=== PATIENT | female | born 1960 | race Caucasian/White ===

== ENCOUNTER 2016-11-04 23:15 | Emergency (ER) | payer BC ==
[~2016-11-04] VITALS: Ht 162.6 cm; Wt 59.9 kg
[2016-11-04 23:31] VITALS: TEMP 36.9; Ht 162.6 cm; Wt 59.9 kg
[2016-11-04] MEDS ORDERED: OXYCODONE HCL IR 5 MG TAB (IMMEDIATE RELEASE) PO STA (23:39)
[2016-11-05] MEDS ORDERED: NAPR1TAB48 PO (00:27)
[2016-11-05] MEDS ORDERED: BUPR75TA8 PO (00:29)
[2016-11-05] MEDS ORDERED: OXYC1TAB3 PO (00:31)
[2016-11-05] MEDS ORDERED: OXYCODONE IR HOME PACK PO ONE (00:45)
[2016-11-05 00:51] VITALS: BP 138/80; PULSE 79; O2SAT 95
--- NOTE | 2016-11-05 01:00 | EMERGENCY ROOM VISIT NOTE ---
History First contact with patient: 23:35 Chief Complaint: SHOULDER PAIN Stated Complaint: PAIN IN L SHOULDER BROKE OR DISLOCATED History of Present Illness The patient is a 56 year old female who presents to the Emergency Room with complaints of left shoulder pain after she slipped and fell landing on her shoulder just prior to arrival. Patient is visiting family here and is from [place] and returns on Sunday. 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 Patient describes the pain as throbbing, ranging in severity 8 out of 10 worse with movement and better with rest. Pain does not radiate. No prior fracture to this arm. Patient denies chest pain, dyspnea , headache, neck pain, head injury, loss consciousness, numbness, tingling or any other medical complaints. Review of Systems See HPI for pertinent positives & negatives. A total of 10 systems reviewed and were otherwise negative. Past Medical/Surgical History Arthritis, left arm congenital deformity Social History Smoking Status: Current Every Day Smoker Alcohol Use: occasionally Drug Use: none Marital Status: Housing Status: lives with family Current/Historical Medications Scheduled Bupropion Hcl (Wellbutrin), Unknown Dose PO DIRECTED Naproxen (Naprosyn), Unknown Dose PO DIRECTED Scheduled PRN Oxycodone Immediate Rel Tab (Roxicodone Ir), 1-2 TAB PO Q4H PRN for Severe Pain Allergies Coded Allergies: No Known Allergies (Unverified , 11/05/16) Physical Exam Vital Signs Date Time Temp Pulse Resp B/P Pulse Ox O2 Delivery O2 Flow Rate FiO2 11/04/16 23:31 36.9 85 20 145/80 96 Room Air Physical Exam VITALS: Vitals are noted on the nurse's note and reviewed by myself. Vital signs stable. GENERAL: Pleasant female with tobacco odor, in no acute distress, nondiaphoretic , well-developed well-nourished. SKIN: Capillary reflex less than 2 seconds. HEENT: Normocephalic. PERRLA. EOMI. Nares patent. Mucous membranes moist. Neck is supple without nuchal rigidity. No C-spine tenderness. HEART: Regular rate and rhythm without murmurs gallops or rubs. LUNGS: Clear to auscultation bilaterally without wheezes, rales or rhonchi. No retractions or accessory muscle use. ABDOMEN: Positive bowel sounds x 4. Normal tympanic percussion. Soft, nontender, without masses or organomegaly. Adams sign negative. No guarding or rebound tenderness. MUSCULOSKELETAL: Left shoulder tender to palpation increased pain with range of motion, congenital deformity of patient of only having the shoulder to the humerus. Patient has no elbow or below. Sensation is intact. No clavicular tenderness. No thoracic or lumbar tenderness on exam. Patient can ambulate without difficulties. NEURO: Patient was alert and oriented to person place and time. Normal sensation to light and sharp touch. No focal neurological deficits. Medical Decision & Procedures Medications Administered Medications (Trade) Dose Ordered Sig/Drew Route Start Time Stop Time Status Last Admin Dose Admin Oxycodone HCl (Roxicodone Immediate Rel Tab) 5 mg NOW STAT PO 11/04/16 23:39 11/04/16 23:40 DC 11/04/16 23:47 5 MG Oxycodone HCl (Roxicodone Immediate Rel 5MG Home Pack) 1 homepack UD ONCE PO 11/05/16 00:45 11/05/16 00:46 11/05/16 00:43 1 HOMEPACK ED Course Prior records/ancillary studies reviewed. Triage Nursing notes reviewed. Additional history obtained from family. The patient's history was concerning for traumatic injury Differential diagnosis: Etiologies such as fracture, dislocation, pneumothorax, intrathoracic , as well as other traumatic pathologies were entertained. Physical examination findings: As above. The patients vitals were stable. ER treatment provided: OxyIR, sling On reassessment the patient felt better. Vital signs were stable. Diagnostic interpretation by me: Imaging studies: Left shoulder x-ray concerning for humeral head fracture per my interpretation This appears to be consistent with humeral head fracture. Patient was neurovascularly and neurologically intact. Sling was placed. She is advised to follow-up with orthopedics when she returns to [place] on Sunday or here in the ER sooner for severe pain, numbness, tingling, worsening signs or symptoms or as needed. Patient was neurovascularly and neurologically intact. No other injuries were noted. She is well-appearing. She ambulated out of the ER without difficulties. She was given a copy of her x-rays. By the evaluation outlined above emergent etiologies such as pneumothorax, intracranial, neurologic,as well as others were deemed relatively unlikely. The pt informed about the findings as listed above. All questions were answered and pleased with the treatment. Return instructions were outlined and the patient was discharged in stable condition. Outpatient prescription management: oxyIR Referral: The patient was referred to ortho for follow-up in 2 to 3 days for a recheck of the current condition. case reviewed with my Attending Medical Decision As above Impression Primary Impression: Left humeral fracture Additional Impression: Fall Departure Information Dispostion Home / Self-Care Condition GOOD Prescriptions Oxycodone Immediate Rel Tab (ROXICODONE IR) 5 Mg Tab 1-2 TAB PO Q4H Y for Severe Pain, #10 TAB Prov: Sujata Gilbert .JUANIS 11/05/16 Forms HOME CARE DOCUMENTATION FORM, IMPORTANT VISIT INFORMATION Patient Instructions My [facility], ED Fx Upper Ext Additional Instructions DO NOT drive, drink alcohol, operate machinery, or perform dangerous activities today. You were given medications in the ER that can affect your ability to safely function or operate a vehicle. Oxycodone (OxyIR) 5mg: Take 1-2 pills every four hours for breakthrough pain. Avoid alcohol, operating machinery or dangerous equipment, working on ladders or roofs, DRIVING, or situations where being under the influence may be dangerous. It is recommended to use an [id number]-[id number] stool softener such as Colace, 100mg twice daily while taking this medication to avoid constipation. Ibuprofen(Motrin, Advil) may be used for fever or pain. Use 600mg every six hours as needed. Take with food. Avoid using more than 2400mg in a 24 hour period. Do not use 2400mg per day for more than three consecutive days without physician direction. Prolonged inappropriate use can lead to stomach upset or ulcers. This medication can be taken if you need to drive, work, or perform activities which may be dangerous when taking narcotic pain medication. (AND/OR) Acetaminophen(Tylenol) may be used for fever or pain. Use 1000mg every six hours as needed. Avoid using more than 3000mg in a 24 hour period. This medication can be taken if you need to drive, work, or perform activities which may be dangerous when taking narcotic pain medication. Ice compresses for 20 minutes at a time four times daily for 2-3 days. Use the sling as instructed. Remove your arm from the sling 4-6 times a day and move all the joints around to keep them loose. Rest and elevate your injury. Continue current medications. Return to the ER immediately for any numbness, tingling, severe pain, extreme swelling in the extremity or as needed. Call Orthopedics when you return back to [place] on Sunday to arrange follow up for your injury. Bring x-rays with you that were given to you in the ER for your appointment. Problem Qualifiers Primary Impression: Left humeral fracture Encounter type: initial encounter Humerus Location: surgical neck Fracture type: closed Fracture morphology: unspecified fracture morphology Fracture alignment: displaced Qualified Codes: S42.212A - Unspecified displaced fracture of surgical neck of left humerus, initial encounter for closed fracture Additional Impression: Fall Encounter type: initial encounter Qualified Codes: W19.XXXA - Unspecified fall, initial encounter
--- NOTE | 2016-11-05 08:29 | DIAGNOSTIC IMAGING REPORT ---
LEFT SHOULDER MIN 2 VIEWS ROUTINE CLINICAL HISTORY: Left shoulder pain following fall. COMPARISON: None FINDINGS: These images demonstrate a moderately displaced acute left humeral neck fracture which extends into the left humeral head and proximal shaft of the left humerus. Alignment of the left acromioclavicular and glenohumeral joints is anatomic. IMPRESSION: Acute moderately displaced left humeral neck fracture. Electronically signed by: Home Jean M.D. 11/05/2016 8:28 AM Dictated Date/Time: 11/05/2016 8:27 AM
--- NOTE | 2016-11-05 08:30 | DIAGNOSTIC IMAGING REPORT ---
LEFT HUMERUS MIN 2 VIEWS ROUTINE CLINICAL HISTORY: Fall. Left shoulder pain. COMPARISON: None FINDINGS: Left forearm is absent. A well-corticated ossific density along the distal shaft of the left humerus is chronic. There is an acute moderately displaced left humeral neck fracture which extends into a fracture aspect of the left humeral head and proximal shaft of the left humerus. IMPRESSION: Acute moderately displaced left humeral neck fracture. Electronically signed by: Home Jean M.D. 11/05/2016 8:29 AM Dictated Date/Time: 11/05/2016 8:28 AM
== END 2016-11-05 00:53 | disposition home or self-care (01) ==
LOC: C.EDB 23:17 → C.EDC 11-05 00:53
DX: S42.212A Unspecified displaced fracture of surgical neck of left humerus, initial encounter for closed fracture (principal); W01.0XXA Fall on same level from slipping, tripping and stumbling without subsequent striking against object, initial encounter; M19.90 Unspecified osteoarthritis, unspecified site; Q74.9 Unspecified congenital malformation of limb(s); F17.200 Nicotine dependence, unspecified, uncomplicated